=== PATIENT | female | born 1995 | race Caucasian/White ===

== ENCOUNTER 2018-11-21 05:22 | Emergency (ER) | payer OTHER ==
[~2018-11-21] VITALS: Ht 162.6 cm; Wt 62.8 kg
[2018-11-21 07:10] VITALS: BP 114/76
== END 2018-11-21 07:10 | disposition home or self-care (01) ==
LOC: ED 05:22
DX: M94.0 Chondrocostal junction syndrome [Tietze] (principal)
CPT/HCPCS: Q0092